=== PATIENT | female | born 1945 | race Caucasian/White ===

== ENCOUNTER 2023-03-31 16:01 | Outpatient (CLI) | payer MEDICARE | END 2023-03-31 16:02 | disposition home or self-care (01) | LOC: CSHCT 16:01 | PROVIDERS: ATTEND Family Medicine Sports Medicine | DX: R18.8 Other ascites (principal); R05.3 Chronic cough; R79.89 Other specified abnormal findings of blood chemistry; E80.6 Other disorders of bilirubin metabolism; K76.9 Liver disease, unspecified; J90 Pleural effusion, not elsewhere classified; J98.11 Atelectasis; K82.9 Disease of gallbladder, unspecified; K57.30 Diverticulosis of large intestine without perforation or abscess without bleeding; R59.0 Localized enlarged lymph nodes | CPT/HCPCS: 71250; 74177 ==

== ENCOUNTER 2023-04-06 10:11 | Outpatient (CLI) | payer MEDICARE ==
[2023-04-06 11:37] LABS: #Eosinphils 0.1 10x3/uL (0.0-0.5); #Monocytes 0.5 10x3/uL (0.0-1.1); #Neutrophils 2.4 10x3/uL (1.5-8.4); %Lymphocytes 26.5 % (18.0-47.0); %Monocytes 11.6 % (0.0-10.0); %Neutrophils 58.4 % (40.0-75.0); Hematocrit 32.6 % (34.9-44.5); Hemoglobin 11.4 g/dL (12.0-15.5); Mean Corpuscular Hemoglobin 34.8 pg (27.0-33.0); Mean Corpuscular Volume 99.4 fl (81.6-98.3); Mean Platelet Volume 10.3 fl (7.4-10.4); Platelet Count 168 10x3/uL (150-450); RBC Distribution Width 17.9 % (11.5-14.5); Red Blood Cell (RBC) Count 3.28 10x6/uL (3.90-5.03)
[2023-04-06 12:09] VITALS: BP 138/91; TEMP 99.2
[2023-04-06 12:17] LABS: INR-International Normal Ratio 1.2; Prothrombin Time 12.5 sec (9.5-12.1)
[2023-04-06] MEDS ORDERED: Lidocaine 1% PF 5 ML VIAL ONE (12:45)
[2023-04-06] MEDS ORDERED: Sodium Bicarbonate 2.5 MEQ/5 ML SDV ONE (12:45)
[2023-04-06 14:31] LABS: BF Color Yellow; Body Fluid Source Ascites Body Fluid; Clarity Hazy (Clear); Tube # EDTA
[2023-04-06 15:16] LABS: BF Segmented Neutrophils 2 %; Cell Count Non Hematic 48 %; Lymphocytes 50 %
== END 2023-04-06 13:43 | disposition home or self-care (01) ==
LOC: CSHSPEC 10:11
PROVIDERS: ATTEND Internal Medicine Gastroenterology
DX: K74.60 Unspecified cirrhosis of liver (principal); R18.8 Other ascites; R93.2 Abnormal findings on diagnostic imaging of liver and biliary tract
CPT/HCPCS: 49083; 82042; 84157; 85025; 85610; 87070; 87205; 88112; 89051